=== PATIENT | male | born 2000 ===

== ENCOUNTER 2022-02-10 09:56 | Emergency (ER) | payer OTHER, SELFPAY ==
--- NOTE | 2022-02-10 10:11 | XRR_ITS ---
PROCEDURE INFORMATION: Exam: XR Right Foot Exam date and time: 02/10/2022 11:23 AM Age: 21 years old Clinical indication: Injury or trauma; Other: Stepped on nail; Puncture; Heel; Right; Foreign body involvement not specified; Additional info: Potential foreign body TECHNIQUE: Imaging protocol: Radiologic exam of the Right foot. Views: 1 or 2 views. COMPARISON: No relevant prior studies available. FINDINGS: Bones/joints: Negative for acute bony abnormality Soft tissues: Normal. Negative for radiodense soft tissue foreign body. No subcutaneous emphysema correlating with a laceration. XR/XR foot RT 2V [id number] IMPRESSION: No acute findings.
--- NOTE | 2022-02-10 10:13 | PC.NURSE ---
PER DR. NOLEN VERBAL ORDER ASSISTED WITH POSITIONING OF RIGHT FOOT AFTER PT GAVE VERBAL CONSENT TO REMOVE IMPALED OBJECT.
[2022-02-10 10:15] VITALS: BP 125/78; PULSE 88; RESP 20; TEMP 36.6; O2SAT 99
--- NOTE | 2022-02-10 10:15 | ED_ITS ---
HPI - Wound/Laceration General: Chief Complaint: Skin/Abscess/Foreign Body Stated Complaint: Stepped on nail, right foot Time Seen by Provider: 02/10/22 10:04 History of Present Illness: 21-year-old male presents with a nail in his right foot. Patient reports he was out playing with his dog and yard when he stepped on it and had a nail go through his sandal into the heel of his right foot. Patient is up-to-date on his tetanus. Patient has no other injury Review of Systems General: Reports: 10 or more systems reviewed and unremarkable except in HPI and below Skin/Breast: Reports: other (Please see HPI) Physical Exam Const: COMMON NORMALS: patient oriented x3 GENERAL APPEARANCE: cooperative and anxious Resp: COMMON NORMALS: normal respiratory effort, No retractions and No use of accessory muscles Cardio: COMMON NORMALS: regular rate and regular rhythm RATE: regular rate RHYTHM: regular rhythm Extremity: OTHER: Patient with full range of motion, good pulses, right heel has nail through sandal and into his foot Neuro: COMMON NORMALS: patient oriented x3 and no focal motor deficits Psych: COMMON NORMALS: Normal thought process present, cooperative, normal affect and speech normal SPEECH: Yes normal speech THOUGHT PROCESS: Normal thought process present Skin: OTHER: Nail in right foot Course Vital Signs: Vital signs: Vital Signs Temperature 97.8 F 02/10/22 10:15 Pulse Rate 88 02/10/22 10:15 Respiratory Rate 20 H 02/10/22 10:15 Blood Pressure 125/78 02/10/22 10:15 Pulse Oximetry 99 02/10/22 10:15 MDM - Wound/Laceration Medical Decision Making Nail was removed without difficulty by manual extraction. Patient tolerated well. No foreign body noted on x-ray. Discussed supportive care and keeping clean with warm soapy water. Patient should follow-up with primary care provider if any erythema warmth or drainage develops. Patient stable and discharged home Lab Data Radiology Impressions Foot X-Ray 02/10/22 10:11 IMPRESSION: No acute findings. Discharge Plan Discharge Patient Disposition: Home Clinical Impression: Puncture wound of sole of right foot without complication Condition: Stable Discharge Orders: Discharge ED (Routine); Ordered 02/10/22 Ordered By: Amador iFelds Discharge Diet: Usual diet Discharge Activity: Resume usual activity Patient Instructions: Puncture Wound in the Foot (ED), Opioid Safety, Pain Management Activity Restrictions/Additional Instructions: Keep clean with warm soapy water, monitor for any increasing redness, warmth or drainage. Follow-up with your primary care provider as needed or if any of these develop Coding Level of Care Code ED Regulatory Compliance Engineer for Chg Fwd Exam Detailed
== END 2022-02-10 10:50 | disposition home or self-care (01) ==
PROVIDERS: Emergency Provider Student in an Organized Health Care Education/Training Program
DX: S91.341A Puncture wound with foreign body, right foot, initial encounter (principal); W45.0XXA Nail entering through skin, initial encounter
CPT/HCPCS: 73620; 99283